=== PATIENT | female | born 1935 | race Caucasian/White ===

== ENCOUNTER 2017-08-13 10:14 | Inpatient (IN) | payer OTHER ==
[~2017-08-13] VITALS: Ht 167.6 cm; Wt 81.2 kg
[~2017-08-13 10:14] MED LIST: CLIN300C6 PO; COZ50 PO; Insulin Aspart, Recombinant SUBQ; LEVO750T2 PO; METH4TAB1 PO; Montelukast Sodium PO; SACC250C1 PO
--- NOTE | 2017-08-13 10:37 | NUR ---
Patient ambulated to bed 11. RN evaluating patient at bedside.
--- NOTE | 2017-08-13 10:38 | NUR ---
82 Y BIB DAUGHTER WITH C/O NON PRODUCTIVE COUGH WITH MILD SOB X 4 DAYS PROGRESSIVELY GETTING WORSENING; PT STATS SHE WAS DX AT [facility] 3 DAYS AGO WITH PNA AND BRONCHITIS; PT REPORTS FEVER AND VOMITTING THIS AM; PT DENIES ANY CP OR ABD PAIN AT THIS TIME; RR ARE EVEN AND UNLABORED; PULSE OX=96% AT RA; PT IS AOX4; PT REPORTS "ALL OVER BODY ACHES" OF 4/10 PAIN; PT POSITIONED FOR COMFORT, BED DOWN; NAD; ER MD AWARE OF PT STATUS; WILL CONTINUE TO MONITOR.
--- NOTE | 2017-08-13 10:44 | NUR ---
Dr. Saavedra evaluating patient at bedside.
[2017-08-13 10:45] VITALS: BP 136/70
[2017-08-13] MEDS ORDERED: ALBUTEROL SULFATE/IPRATROPIU 3 ML SOL IH ONE (10:45)
[2017-08-13] MEDS ORDERED: NACL 0.9% 1,000 ML IV ONE (10:55)
[2017-08-13] MEDS ORDERED: VANCOMYCIN 1,000 MG in DEXTROSE 5% 250 ML IV ONE (10:55)
[2017-08-13] MEDS ORDERED: PIPERACILLIN/TAZOBACTAM 3.375 GM in DEXTROSE 5% 50 ML IV ONE (10:55)
[2017-08-13] MEDS ORDERED: PIPERACILLIN/TAZOBACTAM 3.375 GM VIAL IV ONE (11:08)
[2017-08-13] MEDS ORDERED: VANCOMYCIN 1,000 MG VIAL ONE ×2 (11:10→11:18)
[2017-08-13 11:21] LABS: BASOPHILS # (AUTO) 0.1 K/uL (0.00-0.22); BASOPHILS % (AUTO) 2.3 % (0.0-2.0); EOSINOPHILS # (AUTO) 0.2 K/uL (0-0.4); EOSINOPHILS % (AUTO) 4.4 % (0.0-4.0); HEMATOCRIT 31.1 % (36-48); HEMOGLOBIN 10.3 g/dL (12.0-16.0); LYMPHOCYTES % (AUTO) 24.1 % (20.5-51.1); MEAN CORPUSCULAR HEMOGLOBIN 31 pg (27-31); MEAN CORPUSCULAR HGB CONC 33 g/dL (33-37); MEAN CORPUSCULAR VOLUME 93 fL (80-94); MONOCYTES # (AUTO) 0.5 K/uL (0.8-1.0); MONOCYTES % (AUTO) 10.7 % (1.7-9.3); NEUTROPHILS # (AUTO) 2.5 K/uL (1.8-7.7); NEUTROPHILS % (AUTO) 58.5 % (42.2-75.2); PLATELET COUNT (AUTO) 151 K/uL (140-450); RED BLOOD CELL COUNT(AUTO) 3.34 MIL/uL (4.20-5.40); RED CELL DISTRIBUTION WIDTH 13.8 % (11.6-13.7); WHITE BLOOD COUNT (AUTO) 4.3 K/uL (4.8-10.8)
[2017-08-13 11:38] LABS: ALBUMIN 3.1 g/dL (3.4-5.0); ANION GAP 13.6 (8-16); ASPARTATE AMINOTRANSFERASE 27 U/L (15-37); CARBON DIOXIDE 25.7 mmol/L (21-32); CHLORIDE 103 mmol/L (98-107); CREATININE 1.1 mg/dL (0.6-1.3); GLUCOSE 127 mg/dL (74-106); POTASSIUM 4.3 mmol/L (3.5-5.1); SODIUM SERUM 138 mmol/L (136-145); TOTAL BILIRUBIN 0.4 mg/dL (0.0-1.0); UREA NITROGEN, BLOOD 25 mg/dL (7-18)
[2017-08-13] MEDS: NACL 0.9% 1,000 ML IV SCH (12:09)
[2017-08-13] MEDS ORDERED: ONDANSETRON 4 MG/2 ML VIAL IVP PRN (12:10)
[2017-08-13] MEDS ORDERED: HYDROcodone/APAP 7.5/325 MG 1 TAB PO PRN (12:10)
[2017-08-13] MEDS ORDERED: ACETAMINOPHEN 325 MG TAB PO PRN (12:10)
--- NOTE | 2017-08-13 12:37 | NUR ---
Patient will be admitted to care of [facility]. Admited to Tele. Will go to room 122A. Belongings list completed. Report to Danii RHODES.
[2017-08-13] MEDS ORDERED: FERR-193 PO (12:54)
[2017-08-13] MEDS ORDERED: SIMV20TA6 PO (12:54)
[2017-08-13] MEDS ORDERED: NEP PO (12:54)
[2017-08-13] MEDS ORDERED: PIOG30TA28 PO (12:54)
[2017-08-13] MEDS ORDERED: RANI-451 PO (12:54)
[2017-08-13] MEDS ORDERED: [UNRECOGNIZED DRUG - OTHER] OP (12:54)
[2017-08-13] MEDS ORDERED: CIRUELAX PO (12:54)
[2017-08-13] MEDS ORDERED: CODE118S2 PO (12:54)
[2017-08-13] MEDS ORDERED: ACET-1087 PO (12:54)
[2017-08-13] MEDS ORDERED: [UNRECOGNIZED DRUG - CODE] PO (12:54)
[2017-08-13] MEDS ORDERED: ASPI81TA3 PO (12:54)
[2017-08-13] MEDS ORDERED: DOXY100C9 PO (12:54)
[2017-08-13] MEDS ORDERED: ALBU0.0912 IH (12:54)
[2017-08-13] MEDS ORDERED: NAPROXEN 250 MG PO SCH (12:55)
[2017-08-13] MEDS ORDERED: PROMETH/CODEINE 6.25-10MG/5ML 5 ML UDC PO SCH (12:55)
[2017-08-13] MEDS ORDERED: TETRAHYDROZOLINE 0.05% OP 15 ML BTL OP SCH (12:55)
[2017-08-13 13:00] VITALS: BP 137/69
--- NOTE | 2017-08-13 13:00 | NUR ---
RECEIVED PT ON UNIT VIA fruuxRNEY, PT IS A/OX4, AMBULATES WITH ASSIST, SKIN IS INTACT, IV ON THE RT HAND, PATENT, INTACT, FLUSHING WELL, NO S/S OF RESPIRATORY DISTRESS OR DISCOMFORT NOTED, PT HAS INTERMITTENT COUGH, DISCUSSED PLAN OF CARE WITH PT, PT VERBALIZED UNDERSTANDING, ORIENTED PATIENT TO ROOM, SAFETY/FALL PRECAUTIONS ARE IN PLACE, PATIENT'S DAUGHTER IS AT BEDSIDE, CALL LIGHT IS WITHIN REACH, WILL CONTINUE TO MONITOR.
[2017-08-13] MEDS ORDERED: PROMETH/CODEINE 6.25-10MG/5ML 5 ML UDC PO PRN (13:01)
[2017-08-13 13:45] LABS: PROTHROMBIN TIME 11.3 secs (10.8-13.4)
[2017-08-13] MEDS ORDERED: DEXTROSE 50% 50 ML SYR IVP PRN (13:50)
[2017-08-13] MEDS ORDERED: ALBUTEROL 0.083% 2.5 MG/3 ML NEBU INH PRN (13:50)
[2017-08-13] MEDS ORDERED: ALBUTEROL SULFATE/IPRATROPIU 3 ML SOL IH PRN (13:50)
[2017-08-13] MEDS ORDERED: MECLIZINE 25 MG TAB PO PRN (13:50)
[2017-08-13] MEDS ORDERED: NITROGLYCERIN 0.4 MG TAB SL PRN (13:50)
[2017-08-13 13:55] LABS: CHOL/HDL RATIO 2.7 (1-4.5); FREE T4 (FREE THYROXINE) 1.32 ng/dL (0.76-1.46); MAGNESIUM 1.6 mg/dL (1.8-2.4); PHOSPHORUS 3.8 mg/dL (2.5-4.9); THYROID STIMULATING HORMONE 1.42 uIU/mL (0.34-3.74)
[2017-08-13] MEDS ORDERED: MAG SULF 2000 MG/WATER PREMIX 50 ML IV SCH (14:53)
[2017-08-13] MEDS ORDERED: ALBUTEROL 0.083% 2.5 MG/3 ML NEBU INH SCH (15:00)
[2017-08-13 16:00] VITALS: BP 126/64
[2017-08-13] MEDS ORDERED: CIRUELAX PO SCH (17:00)
[2017-08-13] MEDS: SIMVASTATIN 20 MG TAB PO SCH (17:07)
[2017-08-13] MEDS: PIPER/TAZO 2.25GM/D5W PREMIX 50 ML IV SCH ×2 (17:07→23:53)
[2017-08-13] MEDS: LACTOBACILLUS RHAMNOSUS GG 1 EACH CAP PO SCH (17:07)
--- NOTE | 2017-08-13 17:45 | NUR ---
PT SITTING IN BED EATING DINNER, CALL LIGHT WITHIN REACH.
--- NOTE | 2017-08-13 18:24 | NUR ---
ASSISTED PT TO RESTROOM AND BACK INTO BED. CALL LIGHT WITHIN REACH.
--- NOTE | 2017-08-13 19:12 | NUR ---
ENDORSED PT TO C ENGINEER NURSE FOR CONTINUITY OF CARE, PT STABLE AT THIS TIME.
--- NOTE | 2017-08-13 19:15 | NUR ---
RECEIVED REPORT FROM DAY SHIFT . AAOX4. IV TO RIGHT HAND #24G, PATENT AND INTACT. DISCUSSED PLAN OF CARE, PT VERBALIZE UNDERSTANDING. SAFETY PRECAUTION IN PLACE. CALL LIGHT WITHIN REACH. WILL CONTINUE TO MONITOR.
[2017-08-13] MEDS: ALBUTEROL SULFATE/IPRATROPIU 3 ML SOL IH SCH (19:52)
[2017-08-13 20:00] VITALS: BP 134/62
[2017-08-13] MEDS: ASCORBIC ACID 500 MG TAB PO SCH (21:00)
[2017-08-13] MEDS: DOCUSATE SODIUM 100 MG GELCAP PO SCH (21:00)
[2017-08-13] MEDS: FERROUS SULFATE 325 MG TABEC PO SCH (21:00)
[2017-08-13] MEDS: METOPROLOL 25 MG TAB PO SCH (21:00)
--- NOTE | 2017-08-13 21:10 | NUR ---
RT CAME FOR PT'S CPAP. PT COUGHING. ASSESSED LUNG SOUNDS, CRACKLES ON AUSCULTATION. DR. TAVARES MADE AWARE. DR. TAVARES CAME TO SEE PT.
[2017-08-13] MEDS ORDERED: FUROSEMIDE 40 MG/4 ML VIAL IVP SCH (21:15)
--- NOTE | 2017-08-13 21:25 | NUR ---
2120 PLACED PT ON CPAP WITH 6CM H2O AND 30% FIO2. PT IS USING NASAL MASK SIZE MEDIUM BECAUSE SHE WOULD NOT WAER FULL FACE MASK.PT BS ARE ADDISON LANDA. TOLD RN AND ABOUT BS
--- NOTE | 2017-08-13 21:40 | NUR ---
PT LEFT FOR CT SCAN OF HEAD.
--- NOTE | 2017-08-13 21:55 | NUR ---
PT CAME BACK FROM CT SCAN. NO DISTRESS NOTED.
--- NOTE | 2017-08-13 23:32 | NUR ---
2140 PT TAKEN OFF CPAP TO GO TO CAT SCAN. REPLACED BACK AT 2330. SAME SETTINGS
[2017-08-14] VITALS: BP 137/76
--- NOTE | 2017-08-14 00:02 | NUR ---
ASSISTED PT TO GO TO THE BATHROOM. NO C/O SOB. DENIES PAIN.
[2017-08-14 00:23] LABS: BILIRUBIN,URINE NEGATIVE (NEGATIVE); BLOOD, URINE NEGATIVE (NEGATIVE); COLOR,URINE YELLOW (YELLOW); LEUKOCYTE ESTERASE ,URINE NEGATIVE (NEGATIVE); NITRITE, URINE NEGATIVE (NEGATIVE); PH,URINE 5.5 (5.0-9.0); UGLUCOSE NEGATIVE (NEGATIVE)
[2017-08-14 01:05] LABS: APPEARANCE,URINE CLEAR (CLEAR)
--- NOTE | 2017-08-14 02:45 | NUR ---
PT SLEEPING WITH CPAP. NO S/S OF DISTRESS. CALL LIGHT WITHIN REACH.
[2017-08-14 04:00] VITALS: BP 124/70
--- NOTE | 2017-08-14 05:15 | NUR ---
PT SLEEPING. NO S/S OF PAIN OR DISCOMFORT. CALL LIGHT WITHIN REACH.
[2017-08-14] MEDS: PIPER/TAZO 2.25GM/D5W PREMIX 50 ML IV SCH ×3 (05:55→17:29)
[2017-08-14] MEDS: ALBUTEROL SULFATE/IPRATROPIU 3 ML SOL IH SCH ×3 (07:14→18:57)
--- NOTE | 2017-08-14 07:16 | NUR ---
ENDORSED PT TO DAY SHIFT NURSE. PT IN STABLE CONDITION.
[2017-08-14 07:20] LABS: BASOPHILS # (AUTO) 0.1 K/uL (0.00-0.22); BASOPHILS % (AUTO) 3.1 % (0.0-2.0); EOSINOPHILS # (AUTO) 0.3 K/uL (0-0.4); EOSINOPHILS % (AUTO) 6.7 % (0.0-4.0); HEMATOCRIT 31.2 % (36-48); HEMOGLOBIN 10.3 g/dL (12.0-16.0); LYMPHOCYTES # (AUTO) 1.2 K/uL (2.5-16.5); LYMPHOCYTES % (AUTO) 25.3 % (20.5-51.1); MEAN CORPUSCULAR HEMOGLOBIN 30 pg (27-31); MEAN CORPUSCULAR HGB CONC 33 g/dL (33-37); MEAN CORPUSCULAR VOLUME 92 fL (80-94); MONOCYTES # (AUTO) 0.6 K/uL (0.8-1.0); NEUTROPHILS # (AUTO) 2.4 K/uL (1.8-7.7); NEUTROPHILS % (AUTO) 52.9 % (42.2-75.2); PLATELET COUNT (AUTO) 157 K/uL (140-450); RED BLOOD CELL COUNT(AUTO) 3.39 MIL/uL (4.20-5.40); RED CELL DISTRIBUTION WIDTH 13.4 % (11.6-13.7); WHITE BLOOD COUNT (AUTO) 4.6 K/uL (4.8-10.8)
--- NOTE | 2017-08-14 07:20 | NUR ---
RECEIVED REPORT FROM GINNER HELPER NURSE, PT IS RESTING IN BED, A/OX4, AMBULATES WITH ASSIST, SKIN IS INTACT, IV IS ON THE RIGHT HAND, PATENT, INTACT, FLUSHING WELL, NO S/S OF RESPIRATORY DISTRESS OR DISCOMFORT NOTED, DISCUSSED PLAN OF CARE WITH PT, PT VERBALIZED UNDERSTANDING, SAFETY/FALL PRECAUTIONS ARE IN PLACE, CALL LIGHT IS WITHIN REACH, WILL CONTINUE TO MONITOR.
[2017-08-14 07:41] LABS: ANION GAP 11.5 (8-16); CARBON DIOXIDE 29.3 mmol/L (21-32); CHLORIDE 100 mmol/L (98-107); CREATININE 1.2 mg/dL (0.6-1.3); GLUCOSE 113 mg/dL (74-106); POTASSIUM 3.8 mmol/L (3.5-5.1); SODIUM SERUM 137 mmol/L (136-145); UREA NITROGEN, BLOOD 21 mg/dL (7-18)
[2017-08-14 07:47] LABS: MAGNESIUM 1.9 mg/dL (1.8-2.4); PHOSPHORUS 4.3 mg/dL (2.5-4.9)
[2017-08-14 08:00] VITALS: BP 112/60
[2017-08-14] MEDS: VIT-B COMP/VIT-C/FOLIC ACID 1 TAB PO SCH (08:42)
[2017-08-14] MEDS: ECOTRIN 81 MG TABEC PO SCH (08:43)
[2017-08-14] MEDS: ASPIRIN 81 MG TAB.CHEW PO SCH (08:43)
[2017-08-14] MEDS: ASCORBIC ACID 500 MG TAB PO SCH ×2 (08:43→21:11)
[2017-08-14] MEDS: METOPROLOL 25 MG TAB PO SCH ×2 (08:44→21:11)
[2017-08-14] MEDS: PIOGLITAZONE 30 MG TAB PO SCH (08:44)
[2017-08-14] MEDS: FERROUS SULFATE 325 MG TABEC PO SCH ×2 (08:44→21:13)
--- NOTE | 2017-08-14 08:44 | NUR ---
DUE MEDICATION GIVEN, PT TOLERATED WELL. CALL LIGHT WITHIN REACH.
[2017-08-14] MEDS: LACTOBACILLUS RHAMNOSUS GG 1 EACH CAP PO SCH ×3 (08:45→17:29)
[2017-08-14] MEDS: NACL 0.9% 1,000 ML IV SCH (08:45)
[2017-08-14] MEDS: DOCUSATE SODIUM 100 MG GELCAP PO SCH ×2 (09:00→21:13)
--- NOTE | 2017-08-14 09:56 | NUR ---
PATIENT HAS BEEN SCREENED AND CATEGORIZED MODERATE NUTRITION RISK. PATIENT WILL BE SEEN WITHIN 3-5 DAYS OF ADMISSION. 08/16/17 - 08/18/17 NORMAN HEARD MBA, RD
--- NOTE | 2017-08-14 11:15 | NUR ---
PATIENT SITTING ON THE CHAIR AT BEDSIDE, CALL LIGHT IS WITHIN REACH.
[2017-08-14 12:00] VITALS: BP 129/83
--- NOTE | 2017-08-14 13:00 | NUR ---
PT IS RESTING IN BED, NO S/S OF RESPIRATORY DISTRESS OR DISCOMFORT NOTED, CALL LIGHT WITHIN REACH.
--- NOTE | 2017-08-14 14:14 | NUR ---
P.T. NOTES P.T. EVAL DONE; D/C FROM P.T. AFTER EVAL, NURSING TO AMBULATE PATIENT W/ SPC AD DIANE; REFER TO DC SUMMARY FOR DETAILS.
[2017-08-14] MEDS: methylPREDNISolone SS 40 MG/ML VIAL IVP SCH ×2 (14:43→21:13)
[2017-08-14] MEDS ORDERED: MAGNESIUM CITRATE 300 ML BTL PO SCH (15:15)
[2017-08-14 16:00] VITALS: BP 113/62
--- NOTE | 2017-08-14 16:27 | NUR ---
PATIENT REFUSED LAXATIVE, PT SAID THE PRUNE JUICE HAD HELPED HER HAVE A BOWEL MOVEMENT.
[2017-08-14] MEDS: BLOOD GLUCOSE MONITORING 1 DEV DEV FS SCH ×2 (17:17→21:14)
[2017-08-14] MEDS: SIMVASTATIN 20 MG TAB PO SCH (17:29)
--- NOTE | 2017-08-14 18:51 | NUR ---
PT SITTING UP IN BED FINISHING UP HER DINNER, FAMILY MEMBER IS AT BEDSIDE, CALL LIGHT WITHIN REACH.
--- NOTE | 2017-08-14 19:13 | NUR ---
ENDORSED PT TO BOLT HEADER NURSE FOR CONTINUITY OF CARE, PT STABLE AT THIS TIME, FAMILY MEMBER IS AT BEDSIDE.
--- NOTE | 2017-08-14 19:15 | NUR ---
RECEIVED REPORT FROM AM NURSE. PT RESTING IN BED, AOX4, AMBULATORY, ABLE TO VERBALIZE NEEDS. PT DENIES CHEST PAIN, SOB OR S/S OF ACUTE DISTRESS. SPO2 88-89% ON ROOM AIR WHILE SITTING IN A CHAIR. ASSISTED PT BACK TO BED, PUT ON O2 2L NC, SPO2 96%, RR 16 EVEN AND UNLABORED. MANAGER INFORMATION IN PLACE. IV ACCESS ASYMPTOMATIC, PATENT AND INTACT. IVF INFUSING WELL. DISCUSSED AND REVIEWED PLAN OF CARE WITH PT. PT STATED "OK." ALL NEEDS MET. SAFETY MEASURES ENSURED. CALL LIGHT WITHIN REACH. WILL CONTINUE TO MONITOR.
[2017-08-14 20:00] VITALS: BP 113/57
[2017-08-14] MEDS: INSULIN LISPRO SLIDING SCALE 100 UNITS/ML VIAL SUBQ PRN (21:16)
--- NOTE | 2017-08-14 21:23 | NUR ---
PT SLEEPING COMFORTABLY, AROUSABLE TO NAME, ADMINISTERED DUE MEDS WITH EDUCATION. PT STATED "OK," TOLERATED MEDS WELL. ADMINISTERED INSULIN COVERAGE WITH EVENING SNACK. ALL NEEDS MET. IVF INFUSING WELL. SAFETY MEASURES ENSURED. CALL LIGHT WITHIN REACH. WILL CONTINUE TO MONITOR.
[2017-08-15] VITALS: BP 114/65
[2017-08-15] MEDS: PIPER/TAZO 2.25GM/D5W PREMIX 50 ML IV SCH ×4 (00:27→18:17)
--- NOTE | 2017-08-15 00:28 | NUR ---
PT SLEEPING COMFORTABLY, AROUSABLE TO NAME, ADMINISTERED DUE ZOSYN IVPB WITH EDUCATION. PT STATED "OK," TOLERATED MEDS WELL. CONDITION STABLE. SPO2 98% AT CPAP, RR 20 EVEN AND UNLABORED. ALL NEEDS MET. IVPB INFUSING WELL. SAFETY MEASURES ENSURED. CALL LIGHT WITHIN REACH. WILL CONTINUE TO MONITOR.
--- NOTE | 2017-08-15 03:51 | NUR ---
PT SLEEPING COMFORTABLY, AROUSABLE TO NAME, NO S/S OF ACUTE DISTRESS. SPO2 99% AT CPAP, RR 14 EVEN AND UNLABORED. ALL NEEDS MET. IVF INFUSING WELL. SAFETY MEASURES ENSURED. CALL LIGHT WITHIN REACH. WILL CONTINUE TO MONITOR.
[2017-08-15 04:00] VITALS: BP 135/66
[2017-08-15] MEDS: NACL 0.9% 1,000 ML IV SCH ×2 (04:09→20:57)
--- NOTE | 2017-08-15 04:30 | NUR ---
PT IS MOVED TO BED 117, ALL BELONGINGS CHECKED. CONDITION STABLE, PT TOLERATED WELL. PT TURNED AND REPOSITIONED, OFFLOADED PRESSURE AREAS. SPO2 98% AT O2 2L NC, RR 22 EVEN AND UNLABORED. ALL NEEDS MET. IVF INFUSING WELL. SAFETY MEASURES ENSURED. CALL LIGHT WITHIN REACH. WILL CONTINUE TO MONITOR. Addendum: 08/15/17 at 0542 by Tim Montiel RN PLEASE DISREGARD, WRONG PATIENT
[2017-08-15] MEDS: BLOOD GLUCOSE MONITORING 1 DEV DEV FS SCH ×4 (06:16→20:57)
[2017-08-15] MEDS: INSULIN LISPRO SLIDING SCALE 100 UNITS/ML VIAL SUBQ PRN ×4 (06:17→20:59)
--- NOTE | 2017-08-15 06:20 | NUR ---
INSULIN COVERAGE ADMINISTERED WITH EDUCATION. PT STATED "OK," TOLERATED MED WELL. ALL NEEDS MET. IVF INFUSING WELL. SAFETY MEASURES ENSURED. CALL LIGHT WITHIN REACH. WILL CONTINUE TO MONITOR.
[2017-08-15] MEDS: ALBUTEROL SULFATE/IPRATROPIU 3 ML SOL IH SCH ×3 (07:05→18:00)
--- NOTE | 2017-08-15 07:20 | NUR ---
ENDORSED PLAN OF CARE TO AM NURSE. CONDITION STABLE.
--- NOTE | 2017-08-15 07:25 | NUR ---
RECEIVED REPORT FROM PM SHIFT RN AT BEDSIDE. PT AWAKE AND ALERT, VERBALLY RESPONSIVE, ABLE TO MAKE ALL HER NEEDS KNOWN. BREATHING EVEN AND UNLABORED. NO C/O PAIN OR SOB NOTED. RIGHT HAND IV ACCESS INTACT AND PATENT W/IVF INFUSING. BED IN LOW POSITION. BED ALARM ON. CALL LIGHT WITHIN REACH. WILL CONTINUE TO MONITOR.
[2017-08-15 07:58] LABS: ANION GAP 10.8 (8-16); CARBON DIOXIDE 28.6 mmol/L (21-32); CHLORIDE 104 mmol/L (98-107); GLUCOSE 193 mg/dL (74-106); POTASSIUM 4.4 mmol/L (3.5-5.1); SODIUM SERUM 139 mmol/L (136-145); UREA NITROGEN, BLOOD 27 mg/dL (7-18)
[2017-08-15 08:00] VITALS: BP 141/71
[2017-08-15 08:02] LABS: MAGNESIUM 2.1 mg/dL (1.8-2.4); PHOSPHORUS 4.5 mg/dL (2.5-4.9)
[2017-08-15] MEDS: FERROUS SULFATE 325 MG TABEC PO SCH ×2 (08:29→20:56)
[2017-08-15] MEDS: LACTOBACILLUS RHAMNOSUS GG 1 EACH CAP PO SCH ×3 (08:29→17:08)
[2017-08-15] MEDS: methylPREDNISolone SS 40 MG/ML VIAL IVP SCH ×2 (08:29→20:56)
[2017-08-15] MEDS: DOCUSATE SODIUM 100 MG GELCAP PO SCH ×2 (08:29→20:56)
--- NOTE | 2017-08-15 08:29 | NUR ---
PT IN CHAIR, DENIED ANY PAIN OR DISCOMFORT. SCHEDULED AM PO MED GIVEN AND TOLERATED WELL. CALL LIGHT WITHIN REACH. WILL CONTINUE TO MONITOR.
[2017-08-15] MEDS: PIOGLITAZONE 30 MG TAB PO SCH (08:30)
[2017-08-15] MEDS: ASPIRIN 81 MG TAB.CHEW PO SCH (08:30)
[2017-08-15] MEDS: METOPROLOL 25 MG TAB PO SCH ×2 (08:30→20:56)
[2017-08-15] MEDS: ASCORBIC ACID 500 MG TAB PO SCH ×2 (08:30→20:56)
[2017-08-15] MEDS: VIT-B COMP/VIT-C/FOLIC ACID 1 TAB PO SCH (08:31)
[2017-08-15] MEDS: ECOTRIN 81 MG TABEC PO SCH (09:00)
[2017-08-15 11:28] LABS: BASOPHILS # (AUTO) 0.1 K/uL (0.00-0.22); BASOPHILS % (AUTO) 2.3 % (0.0-2.0); EOSINOPHILS % (AUTO) 0.2 % (0.0-4.0); HEMATOCRIT 29.9 % (36-48); HEMOGLOBIN 9.9 g/dL (12.0-16.0); LYMPHOCYTES # (AUTO) 0.4 K/uL (2.5-16.5); LYMPHOCYTES % (AUTO) 6.6 % (20.5-51.1); MEAN CORPUSCULAR HEMOGLOBIN 31 pg (27-31); MEAN CORPUSCULAR HGB CONC 33 g/dL (33-37); MEAN CORPUSCULAR VOLUME 93 fL (80-94); MONOCYTES # (AUTO) 0.3 K/uL (0.8-1.0); MONOCYTES % (AUTO) 4.8 % (1.7-9.3); NEUTROPHILS # (AUTO) 5.1 K/uL (1.8-7.7); NEUTROPHILS % (AUTO) 86.1 % (42.2-75.2); PLATELET COUNT (AUTO) 139 K/uL (140-450); RED BLOOD CELL COUNT(AUTO) 3.21 MIL/uL (4.20-5.40); RED CELL DISTRIBUTION WIDTH 13.3 % (11.6-13.7); WHITE BLOOD COUNT (AUTO) 5.9 K/uL (4.8-10.8)
[2017-08-15 12:00] VITALS: BP 131/61
--- NOTE | 2017-08-15 12:00 | NUR ---
LUNCH TRAY SET UP FOR PT AND TOLERATED WELL BY PT. DENIED ANY CHEST PAIN, SOB, OR DISCOMFORT. CALL LIGHT WITHIN REACH. WILL CONTINUE TO MONITOR.
[2017-08-15] MEDS: BUDESONIDE 0.5 MG/2 ML NEBU INH SCH (13:00)
--- NOTE | 2017-08-15 13:42 | NUR ---
PT SITTING IN CHAIR REFUSED BREATHING TX NO SIGNS OF DISTRESS NOTED AT THIS TIME
--- NOTE | 2017-08-15 15:35 | NUR ---
FAMILY MEMBERS PRESENTED AT BEDSIDE, TALKING TO PT. NO SOB OR C/O PAIN NOTE. CALL LIGHT WITHIN REACH.
--- NOTE | 2017-08-15 17:00 | NUR ---
RECEIVED REPORT FROM RYAN RN. PT AWAKE AND ALERT AND ORIENTED X4. BREATHING EVEN AND UNLABORED. NO C/O PAIN OR SOB NOTED. RIGHT HAND IV ACCESS INTACT AND PATENT W/IVF INFUSING. BED IN LOW POSITION. BED ALARM ON. CALL LIGHT WITHIN REACH. WILL CONTINUE TO MONITOR.
[2017-08-15] MEDS: SIMVASTATIN 20 MG TAB PO SCH (17:08)
--- NOTE | 2017-08-15 17:13 | NUR ---
REPORT GIVEN TO COURTNEY FOR CONTINUITY OF CARE. PT IN BED NO ACUTE DISTRESS. CALL LIGHT WITHIN REACH.
--- NOTE | 2017-08-15 18:00 | NUR ---
PT UP IN CHAIR, EATING DINNER. NO SOB NOTED. WILL CONTINUE TO MONITOR.
--- NOTE | 2017-08-15 19:30 | NUR ---
ENDORSED PLAN OF CARE TO CLINICAL UNIT COORDINATOR RN, PT IN STABLE CONDITION.
--- NOTE | 2017-08-15 19:31 | NUR ---
RECEIVED REPORT FROM AM NURSE. PT RESTING IN BED, AOX4, AMBULATORY, ABLE TO VERBALIZE NEEDS. PT DENIES CHEST PAIN, SOB OR S/S OF ACUTE DISTRESS. SPO2 96% ON ROOM AIR, RR 18 EVEN AND UNLABORED. CLAIM SERVICE REPRESENTATIVE IN PLACE. PT STATED THAT SHE IS OK TO SLEEP WITHOUT THE CPAP TONIGHT, BUT WILL CALL IF SHE NEEDS IT, WILL MONITOR PT. IV ACCESS ASYMPTOMATIC, PATENT AND INTACT. IVF INFUSING WELL. DISCUSSED AND REVIEWED PLAN OF CARE WITH PT. PT STATED "OK." ALL NEEDS MET. SAFETY MEASURES ENSURED. CALL LIGHT WITHIN REACH. WILL CONTINUE TO MONITOR.
[2017-08-15 20:00] VITALS: BP 125/65
--- NOTE | 2017-08-15 21:00 | NUR ---
ADMINISTERED INSULIN COVERAGE WITH EVENING SNACK AND EDUCATION. ADMINISTERED REMAINING DUE MEDS WITH EDUCATION. PT STATED "OK," TOLERATED MEDS WELL. ALL NEEDS MET. IVF INFUSING WELL. SAFETY MEASURES ENSURED. CALL LIGHT WITHIN REACH. WILL CONTINUE TO MONITOR.
[2017-08-16] VITALS: BP 137/61
[2017-08-16] MEDS: NACL 0.9% 1,000 ML IV SCH (00:09)
[2017-08-16] MEDS: PIPER/TAZO 2.25GM/D5W PREMIX 50 ML IV SCH ×3 (00:19→12:43)
--- NOTE | 2017-08-16 00:20 | NUR ---
ADMINISTERED DUE MED [employer] IVPB WITH EDUCATION. PT STATED "OK." CONDITION STABLE, SPO2 96% AT ROOM AIR, RR 22 EVEN AND UNLABORED. PT STATED SHE FEELS OK WITHOUT THE CPAP TONIGHT BUT WILL USE CALL LIGHT IF SHE NEEDS IT, PT DENIES SOB. ALL NEEDS MET. IVPB INFUSING WELL. SAFETY MEASURES ENSURED. CALL LIGHT WITHIN REACH. WILL CONTINUE TO MONITOR.
--- NOTE | 2017-08-16 03:32 | NUR ---
PT SLEEPING COMFORTABLY, NO S/S OF ACUTE DISTRESS. SPO2 97% AT ROOM AIR, RR 18 EVEN AND UNLABORED, HR 61. ALL NEEDS MET. IVF INFUSING WELL. SAFETY MEASURES ENSURED. CALL LIGHT WITHIN REACH. WILL CONTINUE TO MONITOR.
[2017-08-16] MEDS: BLOOD GLUCOSE MONITORING 1 DEV DEV FS SCH ×2 (06:12→11:30)
[2017-08-16] MEDS: INSULIN LISPRO SLIDING SCALE 100 UNITS/ML VIAL SUBQ PRN ×2 (06:12→12:49)
--- NOTE | 2017-08-16 06:12 | NUR ---
ADMINISTERED DUE ZOSYN IVPB WITH EDUCATION. ADMINISTERED INSULIN COVERAGE WITH EDUCATION, PT STATED "OK," TOLERATED MEDS WELL. ALL NEEDS MET. IVPB INFUSING WELL. SAFETY MEASURES ENSURED. CALL LIGHT WITHIN REACH. WILL CONTINUE TO MONITOR.
--- NOTE | 2017-08-16 07:10 | NUR ---
ENDORSED PLAN OF CARE WITH AM NURSE. CONDITION STABLE.
[2017-08-16] MEDS: ALBUTEROL SULFATE/IPRATROPIU 3 ML SOL IH SCH ×2 (07:15→13:30)
[2017-08-16] MEDS: BUDESONIDE 0.5 MG/2 ML NEBU INH SCH (07:16)
--- NOTE | 2017-08-16 07:25 | NUR ---
RECEIVED REPORT FROM FALL INTERNSHIP RN AT BEDSIDE. PT AWAKE AND ALERT AND ORIENTED X4. BREATHING EVEN AND UNLABORED. NO C/O PAIN OR SOB. IV NOTED TO THE RIGHT HAND 24 GAUGE, WRAPPED IN GAUZE, GAUZE IS INTACT AND DRY. IV INFUSING WELL. BED IN LOW POSITION. BED ALARM ON. CALL LIGHT WITHIN REACH. WILL CONTINUE TO MONITOR.
[2017-08-16 08:00] VITALS: BP 114/63
[2017-08-16] MEDS: LACTOBACILLUS RHAMNOSUS GG 1 EACH CAP PO SCH ×2 (08:00→12:44)
[2017-08-16 08:38] LABS: BASOPHILS # (AUTO) 0.2 K/uL (0.00-0.22); BASOPHILS % (AUTO) 2.4 % (0.0-2.0); EOSINOPHILS # (AUTO) 0.1 K/uL (0-0.4); EOSINOPHILS % (AUTO) 0.7 % (0.0-4.0); HEMATOCRIT 30.9 % (36-48); HEMOGLOBIN 10.2 g/dL (12.0-16.0); LYMPHOCYTES # (AUTO) 1.3 K/uL (2.5-16.5); LYMPHOCYTES % (AUTO) 13.3 % (20.5-51.1); MEAN CORPUSCULAR HEMOGLOBIN 31 pg (27-31); MEAN CORPUSCULAR HGB CONC 33 g/dL (33-37); MEAN CORPUSCULAR VOLUME 93 fL (80-94); MONOCYTES # (AUTO) 0.4 K/uL (0.8-1.0); MONOCYTES % (AUTO) 4.1 % (1.7-9.3); NEUTROPHILS # (AUTO) 8.1 K/uL (1.8-7.7); NEUTROPHILS % (AUTO) 79.5 % (42.2-75.2); PLATELET COUNT (AUTO) 197 K/uL (140-450); RED BLOOD CELL COUNT(AUTO) 3.32 MIL/uL (4.20-5.40); RED CELL DISTRIBUTION WIDTH 13.5 % (11.6-13.7); WHITE BLOOD COUNT (AUTO) 10.1 K/uL (4.8-10.8)
[2017-08-16] MEDS: DOCUSATE SODIUM 100 MG GELCAP PO SCH (09:00)
[2017-08-16 09:07] LABS: ANION GAP 11.9 (8-16); CHLORIDE 104 mmol/L (98-107); CREATININE 1.2 mg/dL (0.6-1.3); GLUCOSE 175 mg/dL (74-106); POTASSIUM 3.9 mmol/L (3.5-5.1); SODIUM SERUM 138 mmol/L (136-145); UREA NITROGEN, BLOOD 29 mg/dL (7-18)
[2017-08-16 09:20] LABS: PHOSPHORUS 3.5 mg/dL (2.5-4.9)
[2017-08-16] MEDS: FERROUS SULFATE 325 MG TABEC PO SCH (10:10)
[2017-08-16] MEDS: VIT-B COMP/VIT-C/FOLIC ACID 1 TAB PO SCH (10:10)
[2017-08-16] MEDS: PIOGLITAZONE 30 MG TAB PO SCH (10:10)
[2017-08-16] MEDS: ASPIRIN 81 MG TAB.CHEW PO SCH (10:11)
[2017-08-16] MEDS: methylPREDNISolone SS 40 MG/ML VIAL IVP SCH (10:11)
[2017-08-16] MEDS: ASCORBIC ACID 500 MG TAB PO SCH (10:11)
[2017-08-16] MEDS: METOPROLOL 25 MG TAB PO SCH (10:11)
[2017-08-16] MEDS ORDERED: LACT10CA PO (11:48)
[2017-08-16] MEDS ORDERED: LEVO750T2 PO (11:48)
[2017-08-16] MEDS ORDERED: DOCU-299 PO (11:48)
[2017-08-16] MEDS ORDERED: MECL-272 PO (11:48)
[2017-08-16] MEDS ORDERED: CLIN300C2 PO (11:48)
[2017-08-16] MEDS ORDERED: VITC500 PO (11:48)
--- NOTE | 2017-08-16 12:00 | NUR ---
PT SITTING IN THE CHAIR AND EATING. NO S/S OF SOB NOTED. WILL CONTINUE TO MONITOR.
--- NOTE | 2017-08-16 13:10 | NUR ---
GOT PT UP TO WALK IN THE HALLWAY WITH O2 MONITOR. PT TOLERATED WELL. O2 SAT IS IN THE 95-96% RANGE. NO S/S OF SOB NOTED.
--- NOTE | 2017-08-16 15:50 | NUR ---
PT DISCHARGED PER MD ORDER. DISCHARGE INSTRUCTIONS AND MEDICATION TEACHING GIVEN. PT HAS BEEN PROVIDED WITH PRESCRIPTIONS. IV CATH DC'ED, TIP INTACT, PRESSURE APPLIED. NO S/S OF DISTRESS NOTED. PT LEFT IN STABLE CONDITION. PT LEFT WITH HER SON AND ALL HER BELONGINGS.
== END 2017-08-16 15:55 | disposition home or self-care (01) | DRG 177 ==
LOC: MED 10:14 → MTU 12:14
PROVIDERS: ADMIT Family Medicine; ATTEND Family Medicine
DX: J69.0 Pneumonitis due to inhalation of food and vomit (principal); N17.0 Acute kidney failure with tubular necrosis; J96.01 Acute respiratory failure with hypoxia; G93.41 Metabolic encephalopathy; E44.0 Moderate protein-calorie malnutrition; D68.59 Other primary thrombophilia; E11.22 Type 2 diabetes mellitus with diabetic chronic kidney disease; I42.9 Cardiomyopathy, unspecified; J45.901 Unspecified asthma with (acute) exacerbation; I12.9 Hypertensive chronic kidney disease with stage 1 through stage 4 chronic kidney disease, or unspecified chronic kidney disease; N18.9 Chronic kidney disease, unspecified; E11.51 Type 2 diabetes mellitus with diabetic peripheral angiopathy without gangrene; G90.9 Disorder of the autonomic nervous system, unspecified; J20.9 Acute bronchitis, unspecified; D64.9 Anemia, unspecified; M94.0 Chondrocostal junction syndrome [Tietze]; Z68.29 Body mass index [BMI] 29.0-29.9, adult; K80.20 Calculus of gallbladder without cholecystitis without obstruction; R29.6 Repeated falls; J47.9 Bronchiectasis, uncomplicated; G47.33 Obstructive sleep apnea (adult) (pediatric); M19.90 Unspecified osteoarthritis, unspecified site; K21.9 Gastro-esophageal reflux disease without esophagitis; E66.3 Overweight; Z83.3 Family history of diabetes mellitus; Z82.3 Family history of stroke; Z82.49 Family history of ischemic heart disease and other diseases of the circulatory system; Z87.891 Personal history of nicotine dependence
CPT/HCPCS: 36415; 70450; 71010; 71250; 80048; 80053; 81003; 82150; 82948; 83036; 83605; 83690; 83735; 83880; 84100; 84439; 84443; 84484; 85025; 85610; 85730; 87040; 87081; 93005; 93880; 93925; 93970; 94640; 94660; 96365; 96367; 99285; J1815; J1940; J2543; J2920; J3370; J3475; J7030; J7060; J7620; J7626; Q0092